=== PATIENT | female | born 1955 | race Caucasian/White ===

== ENCOUNTER 2023-04-29 02:16 | Inpatient (IN) | payer MEDICARE, MEDICAID, SELFPAY ==
[2023-04-29] VITALS (22 sets, daily range): BP systolic 105–179; BP diastolic 56–124; PULSE 52–101; RESP 16–26; TEMP 35.9–36.9; O2SAT 72–97; BMI 17.9
--- NOTE | 2023-04-29 02:28 | DI.CT.S_ITS ---
PROCEDURE: CT HEAD/BRAIN WO CON INDICATIONS: HEADACHE X 10 DAYS TECHNIQUE: Noncontrast 4.5 mm thick angled axial sections acquired from the foramen magnum to the vertex, with coronal and sagittal reformats. For radiation dose reduction, the following was used: automated exposure control, adjustment of mA and/or kV according to patient size. COMPARISON: [facility], CT, HEAD WITHOUT CONTRAST, 10/31/2014, 5:55. FINDINGS: Image quality: Diagnostic. CSF spaces: Basal cisterns are patent. No extra-axial fluid collections. The ventricles are symmetric in size and shape. Brain: No intracranial bleeds or masses. There is cerebral volume loss for age, with resultant ventricular and sulcal prominence. There are periventricular and deep white matter chronic small vessel ischemic changes. There is intracranial internal carotid artery atherosclerosis. Skull and face: Calvarium and visualized facial bones appear intact, without suspicious lesions. Sinuses: Visualized sinuses and mastoids are clear. IMPRESSION: No evidence acute intracranial process. Comment: Final report is concordant with preliminary interpretation provided by [facility]. Dictated by: Luis M Contreras M.D. on 04/29/2023 at 7:50 Approved by: Luis M Contreras M.D. on 04/29/2023 at 7:51
--- NOTE | 2023-04-29 02:28 | DI.RAD.S_ITS ---
PROCEDURE: XR CHEST 1V INDICATIONS: COUGH, DYSPNEA TECHNIQUE: One view of the chest was acquired. COMPARISON: None FINDINGS: Surgical changes and devices: None. Lungs and pleura: Emphysematous change. Extensive patchy bilateral densities, right greater than left, involving the right mid and lower lung field and left lower lung field. Question cavitation. Consider pneumonia versus malignancy. Mediastinum: Mediastinal contours appear normal. Heart size is normal. Bones and chest wall: No suspicious bony lesions. Overlying soft tissues appear unremarkable. IMPRESSION: 1. COPD. 2. Extensive patchy bilateral densities, with a question of cavitation, right greater than left. Consider bilateral pneumonia. Cannot exclude malignancy. Comment: Final report is concordant with preliminary interpretation provided by [facility]. Dictated by: Luis M Contreras M.D. on 04/29/2023 at 7:47 Approved by: Luis M Contreras M.D. on 04/29/2023 at 7:50
--- NOTE | 2023-04-29 02:30 | ED_ITS ---
HPI - General Adult General Chief complaint: Shortness of Breath/Dyspnea Stated complaint: possible flu Time Seen by Provider: 04/29/23 02:21 History of Present Illness HPI narrative: 67-year-old female with history of hypertension, COPD, ongoing tobacco abuse presents by private vehicle from home for 10 days of headache, generalized weakness, productive cough. Family members at home tested positive for influenza, patient has been trying to stay home, but she can not sleep due to her symptoms and has not improved, so tonight they decided to bring her in for evaluation. Related Data Allergies Allergy/AdvReac Type Severity Reaction Status Date / Time codeine [CODEINE] Allergy Unknown Unverified 07/06/17 11:57 Review of Systems Review of Systems Narrative: Negative except as noted above Exam Narrative Exam Narrative: Const: Awake, alert, underweight, appears chronically unwell, much older than stated age Cardiac: regular rate, regular rhythm RESP: Barrel chest, [id number] increased work of breathing, inspiratory and expiratory wheezes GI: Atraumatic, soft, nontender Skin: Warm, Dry, poor skin turgor Neuro: AO x3, CN II-XII grossly intact, moves all extremities Initial Vital Signs Initial Vital Signs: Vital Signs Temperature 98.5 F 04/29/23 02:23 Pulse Rate 98 H 04/29/23 02:23 Respiratory Rate 26 H 04/29/23 02:23 Blood Pressure 179/91 H 04/29/23 02:23 Pulse Oximetry 80 L 04/29/23 02:23 Oxygen Delivery Method Room Air 04/29/23 02:23 Course Orders Ordered: ED Orders 04/29/23 02:28 CT head/brain wo con Stat Chest [XR chest 1V] Stat CBC Auto Diff [Complete Blood Count AUTO DIFF] Stat UA Complete [Urinalysis and Microscopic] Stat 04/29/23 02:29 EKG-12 Lead Stat 04/29/23 02:43 Respiratory Panel (Film Array) Stat 04/29/23 03:10 CMP [Comprehensive Metabolic Panel] Stat Lactate (Lactic Acid) Stat PT [Prothrombin Time INR] Stat Troponin & CK Cardiac Panel Stat 04/29/23 03:11 ABG [Arterial Blood Gas] Stat 04/29/23 03:31 Blood Culture Stat 04/29/23 03:56 CT chest w con Stat Discontinued Medications Albuterol/Ipratropium (Albuterol/Ipratropium 3 Ml Ampul) 6 ml INH NOW ONE Stop: 04/29/23 02:30 Last Admin: 04/29/23 03:15 Dose: 6 ml Diphenhydramine HCl (Diphenhydramine 50 Mg/Ml Vial) 25 mg IV NOW ONE Stop: 04/29/23 02:29 Last Admin: 04/29/23 03:22 Dose: 25 mg Sodium Chloride (Normal Saline 0.9%) 1,000 mls @ 1,000 mls/hr IV BOLUS ONE Stop: 04/29/23 03:27 Last Infusion: 04/29/23 04:10 Dose: Infused Ceftriaxone Sodium 1,000 mg/ (Sodium Chloride) 100 mls @ 200 mls/hr IV NOW ONE Stop: 04/29/23 03:32 Last Infusion: 04/29/23 04:22 Dose: Infused Metoclopramide HCl (Metoclopramide 10 Mg/2 Ml Inj) 10 mg IV NOW ONE Stop: 04/29/23 02:29 Last Admin: 04/29/23 03:25 Dose: 10 mg Vital Signs Vital signs: Vital Signs - 8 hr 04/29/23 02:23 04/29/23 02:25 04/29/23 02:26 Temperature 98.5 F Pulse Rate 98 H 99 H Respiratory Rate 26 H Blood Pressure 179/91 H Pulse Oximetry 80 L 72 L 73 L Oxygen Delivery Method Room Air Oxygen Flow Rate 04/29/23 02:26 04/29/23 02:27 04/29/23 02:27 Temperature Pulse Rate 101 H Respiratory Rate Blood Pressure 177/124 H 179/91 H Pulse Oximetry 74 L Oxygen Delivery Method Oxygen Flow Rate 04/29/23 02:30 04/29/23 02:30 04/29/23 03:01 Temperature Pulse Rate 52 L 83 Respiratory Rate 26 H Blood Pressure 155/97 H 155/97 H Pulse Oximetry 84 L 81 L Oxygen Delivery Method Room Air Oxygen Flow Rate 04/29/23 03:30 04/29/23 03:52 04/29/23 03:52 Temperature Pulse Rate 90 96 H Respiratory Rate Blood Pressure 137/98 H Pulse Oximetry 80 L 89 L Oxygen Delivery Method Room Air Nasal Cannula Oxygen Flow Rate 2 04/29/23 04:00 04/29/23 04:00 Temperature Pulse Rate 86 Respiratory Rate Blood Pressure 121/66 Pulse Oximetry 94 Oxygen Delivery Method Nasal Cannula Oxygen Flow Rate 3 Medical Decision Making Differential Diagnosis Differential Diagnosis: Pneumonia, COPD, influenza Lab Data 04/29/23 03:10 04/29/23 03:10 Labs: Lab Results 04/29/23 04/29/23 04/29/23 Range/Units 02:43 03:10 03:11 WBC 22.4 H (4.5-11.0) X10^3/uL RBC 4.62 (4.0-5.2) X10^6/uL Hgb 13.5 (12.0-16.0) g/dL Hct 40.7 (36-46) % MCV 88.0 (80-100) fL MCH 29.2 (26-34) PG MCHC 33.2 (30-36) % RDW 13.1 (11.6-14.8) % Plt Count 398 (150-400) X10^3/uL Neut % (Auto) 84.3 H (50-75) % Lymph % (Auto) 5.7 L (25-40) % [place] % (Auto) 9.6 (3-14) % Eos % (Auto) 0.2 L (2-4) % Baso % (Auto) 0.2 (0-2) % Neut # (Auto) 30765 H (4227-6935) /uL Lymph # (Auto) 1300 (8551-7789) /uL [place] # (Auto) 2100 H (0-900) /uL Eos # (Auto) 0 (0-450) /uL Baso # (Auto) 100 (0-100) /uL PT 15.0 H (9.4-12.5) SECONDS INR 1.3 (0.9-1.3) ABG Sample Site Left brachial ABG pH 7.37 (7.35-7.45) ABG pCO2 65.0 H* (35-45) mmHg ABG pO2 35 L* (80-100) mmHg ABG HCO3 37 H (23-27) mmol/L ABG Total CO2 39 H (23-27) mmol/L ABG O2 Saturation 63 L* (95-100) % ABG Base Excess 12.0 H (-2-3) mmol/L FiO2 21 Sodium 123 L (137-145) mmol/L Potassium 4.2 (3.4-5.1) mmol/L Chloride 81 L (98-107) mmol/L Carbon Dioxide 39 H (22-32) mmol/L BUN 9 (7-17) mg/dL Creatinine 0.30 L (0.52-1.04) mg/dL Estimated GFR > 60 (>60) mL/min BUN/Creatinine Ratio 30.0 H (6-22) Glucose 116 H (80-110) mg/dL Lactate 1.0 (0.7-2.1) mmol/L Calcium 8.6 (8.4-10.2) mg/dL Total Bilirubin 0.7 (0.2-1.3) mg/dL AST 35 (14-36) IU/L ALT 32 (<35) IU/L Alkaline Phosphatase 93 (38-126) U/L Total Creatine Kinase 24 L (30-135) U/L Troponin I < 0.012 (0.01-0.034) ng/mL Total Protein 6.3 (6.3-8.2) g/dL Albumin 3.0 L (3.5-5.0) g/dL Globulin 3.3 (1.7-4.1) g/dL Albumin/Globulin Ratio 0.9 L (1.0-2.8) Chlamy pneumoniae PCR Not detected (Not Detect) Adenovirus (PCR) Not detected (Not Detect) B.parapertussis DNA PCR Not detected (Not Detecte) Coronavirus OC43 (PCR) Not detected (Not Detect) Coronavirus HKU1 (PCR) Not detected (Not Detect) Coronavirus 229E (PCR) Not detected (Not Detect) SARS-CoV-2 (PCR) Not detected (Not Detecte) Coronavirus NL63 (PCR) Not detected (Not Detect) Human Metapneumovir PCR Not detected (Not Detect) Influenza Type A (PCR) Not detected (Not Detect) Influenza Type B (PCR) Not detected (Not Detect) M. pneumoniae (PCR) Not detected (Not Detect) Parainfluenza 1 (PCR) Not detected (Not Detect) Parainfluenza 2 (PCR) Not detected (Not Detect) Parainfluenza 3 (PCR) Not detected (Not Detect) Parainfluenza 4 (PCR) Not detected (Not Detect) RSV (PCR) Not detected (Not Detect) Entero/Rhino (PCR) Not detected (Not Detect) MDM Narrative Medical decision making narrative: Very chronically unwell appearing patient presenting for shortness of breath, malaise, headache. Patient denies known medical history, stating she hasn't been to see a doctor in many years, however she is obvious barrel chested and pursed lip breathing consistent with obstructive pulmonary disease. Labs, respiratory panel, chest x-ray, CT brain ordered. Plan to also order nebulizers and steroids, headache cocktail, IV fluids. Patient's work of breathing improved after nebulizers, still requiring supplemental oxygen to maintain saturations above 90%. ABG on room air shows pH 7.37, pCO2 65, PO2 35, bicarb 37, oxygen saturation 63%. Laboratory work is significant for leukocytosis of 22.4, sodium 123, potassium 4.2, chloride 81, CO2 39, creatinine 0.3. Respiratory panel negative. Preliminary review of chest x-ray is concerning for multifocal pneumonia, can not rule out malignancy and Radiology recommended additional imaging, and so a CT of the chest with contrast was ordered. Plan to also add blood cultures, lactic acid, IV antibiotics given the leukocytosis and chest x-ray findings. CT of the chest appears most consistent with multifocal pneumonia. Lactic acid 1.0, blood cultures pending. Patient has received IV antibiotics. She was resting comfortably, still on nasal cannula, sitting upright in bed with pursed lip breathing. Plan to admit patient to hospital for further treatment. Critical Care Time Critical Care Time Critical Care Time: Yes Total Critical Care Time: 33 Attestation: acute hypoxemic respiratory failure, COPD, multifocal pneumonia requiring supplemental oxygen, antibiotics Discharge Plan Departure Patient Disposition: Admitted As Inpatient Clinical Impression: Acute hypoxemic respiratory failure, Multifocal pneumonia, Hyponatremia Headache Qualifiers: Headache type: unspecified Headache chronicity pattern: acute headache I ntractability: not intractable Qualified Code(s): R51.9 - Headache, unspecified
[2023-04-29] MEDS: SODIUM CHLORIDE 0.9% 1,000 ML 1000 ML IV (03:10)
[2023-04-29] MEDS: ALBUTEROL/IPRATROPIUM 3 ML AMPUL 6 ML INH (03:15)
[2023-04-29] MEDS: diphenhydrAMINE 50 MG/ML VIAL 25 MG IV (03:22)
[2023-04-29 03:25] LABS: Add Manual Diff / Slide Review NO; Basophils Absolute Auto 100 /uL (0-100); Basophils Percent Auto 0.2 % (0-2); Eosinophils Absolute Auto 0 /uL (0-450); Eosinophils Percent Auto 0.2 % (2-4); Hematocrit 40.7 % (36-46); Hemoglobin 13.5 g/dL (12.0-16.0); Lymphocytes Absolute Auto 1300 /uL (1100-4500); Lymphocytes Percent Auto 5.7 % (25-40); Mean Corpuscular HGB Conc 33.2 % (30-36); Mean Corpuscular Hemoglobin 29.2 PG (26-34); Monocytes Absolute Auto 2100 /uL (0-900); Monocytes Percent Auto 9.6 % (3-14); Neutrophils Absolute Auto 18800 /uL (1500-7000); Neutrophils Percent Auto 84.3 % (50-75); Platelet Count 398 X10^3/uL (150-400); Red Blood Cell Count 4.62 X10^6/uL (4.0-5.2); Red Cell Distribution Width 13.1 % (11.6-14.8); White Blood Cell Count 22.4 X10^3/uL (4.5-11.0)
[2023-04-29] MEDS: METOCLOPRAMIDE 10 MG/2 ML INJ IV (03:25)
[2023-04-29 03:33] LABS: INR 1.3 (0.9-1.3)
[2023-04-29 03:40] LABS: HEMOLYSIS < 15 (0-50)
[2023-04-29 03:43] LABS: Adenovirus Not Detected (Not Detect); B. parapertussis Not Detected (Not Detecte); Bordetella pertussis Not Detected (Not Detect); Chlamydophila pneumoniae Not Detected (Not Detect); Coronavirus 229E Not Detected (Not Detect); Coronavirus HKU1 Not Detected (Not Detect); Coronavirus NL 63 Not Detected (Not Detect); Coronavirus OC43 Not Detected (Not Detect); Human Metapneumovirus Not Detected (Not Detect); Human Rhinovirus/Enterovirus Not Detected (Not Detect); Influenza A Not Detected (Not Detect); Influenza B Not Detected (Not Detect); Mycoplasma pneumoniae Not Detected (Not Detect); Parainfluenza Virus 1 Not Detected (Not Detect); Parainfluenza Virus 2 Not Detected (Not Detect); Parainfluenza Virus 3 Not Detected (Not Detect); Parainfluenza Virus 4 Not Detected (Not Detect); Respiratory Syncytial Virus Not Detected (Not Detect); SARS- CoV-2 Not Detected (Not Detecte)
[2023-04-29 03:47] LABS: Alanine Aminotransferase 32 IU/L (<35); Albumin Globulin Ratio 0.9 (1.0-2.8); Alkaline Phosphatase 93 U/L (38-126); Aspartate Aminotransferase 35 IU/L (14-36); Bilirubin Total 0.7 mg/dL (0.2-1.3); Blood Urea Nitrogen 9 mg/dL (7-17); Calcium 8.6 mg/dL (8.4-10.2); Carbon Dioxide 39 mmol/L (22-32); Chloride 81 mmol/L (98-107); Creatine Kinase 24 U/L (30-135); Estimated Glomerular Filt Rate > 60 mL/min (>60); Globulin 3.3 g/dL (1.7-4.1); Glucose 116 mg/dL (80-110); Potassium 4.2 mmol/L (3.4-5.1); Sodium 123 mmol/L (137-145); Total Protein 6.3 g/dL (6.3-8.2)
[2023-04-29] MEDS: cefTRIAXone 1,000 MG in SODIUM CHLORIDE 0.9% 100 ML 200 MG IV ×2 (03:52→09:06)
--- NOTE | 2023-04-29 03:56 | DI.CT.S_ITS ---
PROCEDURE: CT CHEST W CON INDICATIONS: ABNORMAL CXR, BILAT OPACITIES, FURTHER EVAL TECHNIQUE: After the administration of intravenous contrast, 5 mm thick sections acquired from the pulmonary apices to the posterior costophrenic angles. 1 mm axial lung, 5 mm thick coronal and sagittal reformats and 7 mm axial MIP were acquired. For radiation dose reduction, the following was used: automated exposure control, adjustment of mA and/or kV according to patient size. COMPARISON: [facility], CR, XR CHEST 1V, 04/29/2023, 2:33. FINDINGS: Image quality: Diagnostic. Lower Neck: No enlarged lymph nodes. Thyroid: No thyroid nodules which require sonographic follow up, per consensus guidelines. Axillae: No enlarged lymph nodes. Chest Wall: Unremarkable. Bones: Unremarkable. Lungs and Pleura: No pneumothorax or pleural effusions. Bilateral patchy nodular densities more confluent in lower lobes, right middle lobe and lingula. Moderate emphysema. No pleural effusions. Heart: Heart size is normal. No pericardial effusion. Thoracic Vessels: The aorta and pulmonary arteries demonstrate normal size. Mediastinum and [place]: Mild mediastinal lymphadenopathy. For example, there is a 1.3 cm precarinal lymph node. A 1 cm paratracheal lymph node is identified. Esophagus: No wall thickening. Small hiatal hernia. Upper Abdomen: Visualized upper abdomen solid organs and bowel loops appear normal. IMPRESSION: 1. Bilateral patchy nodular densities, more confluent in lower lobes, right middle lobe and lingula. The findings are most likely secondary to an infectious process, including atypical pneumonia or granulomatous infection. Neoplasm is not excluded. Recommend follow-up to resolution. 2. Mild mediastinal lymphadenopathy, likely reactive. No significant discrepancy with the operations supervisor 2nd shift radiology preliminary report. Dictated by: Liliana Lobo M.D. on 04/29/2023 at 7:57 Approved by: Liliana Lobo M.D. on 04/29/2023 at 8:02
[2023-04-29 04:00] LABS: Troponin I < 0.012 ng/mL (0.01-0.034)
[2023-04-29 04:08] LABS: pH ABG 7.37 (7.35-7.45)
[2023-04-29 04:09] LABS: Allen Test for ABG Passed? Yes, Passed; Blood Gas Collection Site Left Brachial; Fractionated Inspired Oxygen 21; HCO3 ABG 37 mmol/L (23-27); TCO2 ABG 39 mmol/L (23-27)
--- NOTE | 2023-04-29 05:00 | PC.NURSE ---
Assisted to transfer to bathroom via wheelchair to void. Urine catch placed in toilet, pt. instructed to make effort to not void behind catch then did same w/ no urine specimen collected.
--- NOTE | 2023-04-29 05:28 | PC.NURSE ---
[facility] evaluation completed by Hospitalist
[2023-04-29] MEDS: methylPREDNISolone 125 MG/2 ML VIAL IV (06:06)
--- NOTE | 2023-04-29 06:11 | DI.ECHO.S_ITS ---
[facility]+ [facility] +---------+ : : [address] : : [place] : : : : [id number] : : : : Phone: [phone] Echocardiogram Report + + :Name: KARSON DONAHUE Study Date: 04/29/2023 Height: 63 in : :[facility] ReadingLocation: Weight: 101 lb : : Gender: Female BSA: 1.4 m2 : :: 1955 Age: 67 yrs BP: 105/56 mmHg: :Reason For Study: RESPIRATORY FAILURE : :Ordering Physician: KASEY, : :GIOVANI Massey MD Performed By: Zari Mora : :Referring: RESPIRATORY FAILLURE : + + Interpretation Summary The ejection fraction is estimated to be 65-70%. Grade I diastolic dysfunction. The right ventricle is normal in size and function. The right ventricular systolic pressure is estimated to be at least 34 mmHg based on an estimated right atrial pressure of 3 mm Hg. No significant valvular abnormality. Procedure: A two-dimensional transthoracic echocardiogram with color flow and Doppler was performed. The study quality was technically adequate. There is no prior echocardiogram noted for this patient. The patient was in sinus rhythm with heart rates between 69-78 bpm during the exam. Left Ventricle: The left ventricular cavity is small. Left ventricular wall thickness is at the upper limits of normal. An intracavitary gradient is suspected. The left ventricle is hyperdynamic. The ejection fraction is estimated to be 65-70%. Left ventricular wall motion is normal. Grade I diastolic dysfunction. Right Ventricle: The right ventricle is normal in size and function. Atria: The left atrium is mildly dilated. The right atrium is normal in size. There is no Doppler evidence for an interatrial shunt. Mitral Valve: There is mild mitral annular calcification. The mitral valve leaflets appear mildly thickened, but open well. There is no mitral regurgitation noted. Aortic Valve: The aortic valve is trileaflet. The aortic valve is mildly calcified. There is no aortic valve stenosis. No aortic regurgitation is present. Tricuspid Valve: The tricuspid valve is normal in structure and function. There is mild tricuspid regurgitation. The right ventricular systolic pressure is estimated to be at least 34 mmHg based on an estimated right atrial pressure of 3 mm Hg. Pulmonic Valve: The pulmonic valve leaflets are thin and pliable; valve motion is normal. There is no pulmonic valvular regurgitation. Great Vessels: The aortic root is normal size. The dimensions of the ascending aorta are normal. The IVC is of normal diameter and collapses greater than 50% with a sniff. This suggests a low right atrial pressure of 3 mm Hg. Pericardium/ Pleura There is a trivial pericardial effusion noted. There is no pleural effusion. MMode/2D Measurements & Calculations LVIDd: 3.8 cm LVOT diam: 2.1 cm LVIDs: 1.8 cm Ao root diam: 3.1 cm FS: 53.0 % asc Aorta Diam: 3.3 cm IVSd: 1.1 cm LVPWd: 0.91 cm LV messina. diameter/BSA (cm/m^2): 2.6 LV sys. diameter/BSA (cm/m^2): 1.2 LA A2 area: 19.2 cm2 RA long axis: 4.7 cm LA A4 area: 18.4 cm2 RA area: 16.2 cm2 LA length (vol): 5.8 cm RA vol: 47.0 ml LA vol: 52.1 ml RA : 32.5 ml/m2 LA vol index: 36.0 ml/m2 IVC diam: 1.7 cm RVD1 (basal): 3.1 cm RVD2 (mid): 2.4 cm TAPSE: 2.2 cm Doppler Measurements & Calculations Ao V2 max: 139.6 cm/sec LVOT Max Elvis: 112.9 cm/sec Ao V2 mean: 102.4 cm/sec LV V1 max P.1 mmHg Ao max P.8 mmHg LV V1 VTI: 25.2 cm Ao mean P.6 mmHg AMARILIS(I,D): 2.8 cm2 Ao V2 VTI: 29.6 cm AMARILIS(V,D): 2.7 cm2 sev ratio: 0.85 AMARILIS indexed to BSA (cm^2/m^2): 2.0 MV E max elvis: 52.1 cm/sec TR max elvis: 277.0 cm/sec MV A max elvis: 83.7 cm/sec TR max P.7 mmHg MV E/A: 0.62 PA V2 max: 90.3 cm/sec Med Peak E' Elvis: 10.0 cm/sec PA V2 mean: 68.5 cm/sec E/E' med: 5.2 PA mean P.0 mmHg Lat Peak E' Elvis: 9.6 cm/sec PA pr(Accel): 34.5 mmHg E/E' lat: 5.4 E/e' average: 5.3 MV dec time: 0.27 sec SV(LVOT): 83.8 ml Reading Physician:PM
--- NOTE | 2023-04-29 06:13 | PM.HP.1 ---
History of Present Illness History of Present Illness Date Patient Seen: 04/29/23 Time Patient Seen: 06:30 Chief complaint: possible flu Narrative: 67 years old female chronic smoker with likely COPD presented to the emergency room for worsening shortness of breath with generalized weakness and cough that is productive with greenish-yellow sputum. Symptoms have been ongoing for the past week?10 days. She lives with her son/family and apparently some members tested positive for influenza and patient was trying conservative management but symptoms worsened to the point where she presents to the emergency room. Did have chills but did not check temperature. More of a chest tightness with exertion. Denies any nausea or vomiting. Did have a headache that is intermittent but no focal neurological deficits. In the ED was noted to be tachypneic with respiration in the mid 20s and hypoxic with an O2 saturation in the high 70s on room air on arrival that has since improved to 92% on 3 L. Subsequent workup revealed a white count of 22,400 and an ABG showed a pH of 7.37 with a pCO2 of 65 at FiO2 of 2 L. BMP showed a sodium of 123. Lactic acid was 1.0. The virus panel is negative for COVID influenza/RSV and other agents being checked. Chest x-ray and a follow-up CT chest is consistent with multifocal pneumonia. Patient received IV Rocephin/Zithromax/Solu-Medrol with nebulizers/oxygen supplementation. Patient has been admitted for further evaluation [facility] Social History Smoking Status: Current every day smoker Meds Home Medications and Allergies Home Medications Medication Instructions Recorded Confirmed Type No Known Home Medications 04/29/23 04/29/23 History Allergies Allergy/AdvReac Type Severity Reaction Status Date / Time codeine [CODEINE] AdvReac Mild Nausea Verified 04/29/23 05:56 Review of Systems Review of Systems Narrative: A 12 point review of system is negative unless otherwise stated in the history of present illness Exam Vital Signs (past 8 hours): - 04/29/23 02:23 04/29/23 02:25 04/29/23 02:26 Temperature 98.5 F Pulse Rate 98 H 99 H Respiratory Rate 26 H Blood Pressure 179/91 H Pulse Oximetry 80 L 72 L 73 L Oxygen Delivery Method Room Air Oxygen Flow Rate 04/29/23 02:26 04/29/23 02:27 04/29/23 02:27 Temperature Pulse Rate 101 H Respiratory Rate Blood Pressure 177/124 H 179/91 H Pulse Oximetry 74 L Oxygen Delivery Method Oxygen Flow Rate 04/29/23 02:30 04/29/23 02:30 04/29/23 03:01 Temperature Pulse Rate 52 L 83 Respiratory Rate 26 H Blood Pressure 155/97 H 155/97 H Pulse Oximetry 84 L 81 L Oxygen Delivery Method Room Air Oxygen Flow Rate 04/29/23 03:30 04/29/23 03:52 04/29/23 03:52 Temperature Pulse Rate 90 96 H Respiratory Rate Blood Pressure 137/98 H Pulse Oximetry 80 L 89 L Oxygen Delivery Method Room Air Nasal Cannula Oxygen Flow Rate 2 04/29/23 04:00 04/29/23 04:00 04/29/23 04:30 Temperature Pulse Rate 86 96 H Respiratory Rate Blood Pressure 121/66 Pulse Oximetry 94 94 Oxygen Delivery Method Nasal Cannula Nasal Cannula Oxygen Flow Rate 3 3 04/29/23 05:00 04/29/23 05:00 04/29/23 05:08 Temperature Pulse Rate 91 H Respiratory Rate 20 Blood Pressure 140/68 Pulse Oximetry 93 92 Oxygen Delivery Method Nasal Cannula Nasal Cannula Oxygen Flow Rate 3 3 04/29/23 05:30 04/29/23 05:32 04/29/23 05:32 Temperature Pulse Rate 91 H 89 Respiratory Rate Blood Pressure 132/61 Pulse Oximetry 94 94 Oxygen Delivery Method Nasal Cannula Nasal Cannula Oxygen Flow Rate 3 3 04/29/23 06:00 04/29/23 06:00 Temperature Pulse Rate 83 Respiratory Rate Blood Pressure 111/62 Pulse Oximetry 97 Oxygen Delivery Method Nasal Cannula Oxygen Flow Rate 3 Oxygen Delivery Method Nasal Cannula Oxygen Flow Rate 3 Narrative Exam Narrative: Patient is appearing malnourished. Able to speak more than 4-5 words at a time. Does appear to be short of breath. Denies any chest pain Objective Labs 04/29/23 03:10 04/29/23 03:10 Labs: Laboratory Results - last 24 hr 04/29/23 04/29/23 04/29/23 02:43 03:10 03:11 WBC 22.4 H RBC 4.62 Hgb 13.5 Hct 40.7 MCV 88.0 MCH 29.2 MCHC 33.2 RDW 13.1 Plt Count 398 Neut % (Auto) 84.3 H Lymph % (Auto) 5.7 L [place] % (Auto) 9.6 Eos % (Auto) 0.2 L Baso % (Auto) 0.2 Neut # (Auto) 31303 H Lymph # (Auto) 1300 [place] # (Auto) 2100 H Eos # (Auto) 0 Baso # (Auto) 100 PT 15.0 H INR 1.3 ABG Sample Site Left brachial ABG pH 7.37 ABG pCO2 65.0 H* ABG pO2 35 L* ABG HCO3 37 H ABG Total CO2 39 H ABG O2 Saturation 63 L* ABG Base Excess 12.0 H FiO2 21 Sodium 123 L Potassium 4.2 Chloride 81 L Carbon Dioxide 39 H BUN 9 Creatinine 0.30 L Estimated GFR > 60 BUN/Creatinine Ratio 30.0 H Glucose 116 H Lactate 1.0 Calcium 8.6 Total Bilirubin 0.7 AST 35 ALT 32 Alkaline Phosphatase 93 Total Creatine Kinase 24 L Troponin I < 0.012 Total Protein 6.3 Albumin 3.0 L Globulin 3.3 Albumin/Globulin Ratio 0.9 L Chlamy pneumoniae PCR Not detected Adenovirus (PCR) Not detected B.parapertussis DNA PCR Not detected Coronavirus OC43 (PCR) Not detected Coronavirus HKU1 (PCR) Not detected Coronavirus 229E (PCR) Not detected SARS-CoV-2 (PCR) Not detected Coronavirus NL63 (PCR) Not detected Human Metapneumovir PCR Not detected Influenza Type A (PCR) Not detected Influenza Type B (PCR) Not detected M. pneumoniae (PCR) Not detected Parainfluenza 1 (PCR) Not detected Parainfluenza 2 (PCR) Not detected Parainfluenza 3 (PCR) Not detected Parainfluenza 4 (PCR) Not detected RSV (PCR) Not detected Entero/Rhino (PCR) Not detected Assessment & Plan Assessment & Plan narrative: 67 years old female chronic smoker with likely COPD presented to the emergency room for worsening shortness of breath with generalized weakness and cough that is productive with greenish-yellow sputum. Symptoms have been ongoing for the past week?10 days. She lives with her son/family and apparently some members tested positive for influenza and patient was trying conservative management but symptoms worsened to the point where she presents to the emergency room. Did have chills but did not check temperature. More of a chest tightness with exertion. Denies any nausea or vomiting. Did have a headache that is intermittent but no focal neurological deficits. In the ED was noted to be tachypneic with respiration in the mid 20s and hypoxic with an O2 saturation in the high 70s on room air on arrival that has since improved to 92% on 3 L. Subsequent workup revealed a white count of 22,400 and an ABG showed a pH of 7.37 with a pCO2 of 65 at FiO2 of 2 L. BMP showed a sodium of 123. Lactic acid was 1.0. The virus panel is negative for COVID influenza/RSV and other agents being checked. Chest x-ray and a follow-up CT chest is consistent with multifocal pneumonia. Patient received IV Rocephin/Zithromax/Solu-Medrol with nebulizers/oxygen supplementation. Patient has been admitted for further evaluation 1 acute hypoxemic respiratory failure multifactorial likely due to a combination of undiagnosed COPD/chronic smoking in the setting of multifocal pneumonia #2 pneumonia community-acquired multifocal #3 hypoxemia #4 acute COPD exacerbation #5 smoker Pending cultures, continue the IV Rocephin/Zithromax with nebulizers and oxygen supplementation. Continue IV Solu-Medrol for now and maintain O2 saturation above 90%. Maintain continuous pulse ox on telemetry. Advised patient to quit smoking. Watch the blood sugars while on IV steroids Will follow-up with an echocardiogram to check if there is a cardiac component as well 6 hyponatremia suspect more likely secondary to the underlying pneumonia possibly SIADH further complicated by smoking. Follow-up on the final report of the CT chest. Check a serum and urine osmolality. Suspect more of hypervolemia related. Trend the sodium levels closely and focus on gradual correction at 0.5 mmol/h. Recheck in 6 hours. Initiate fluid restriction and trend closely 7 DVT prophylaxis will be Lovenox 8 GI prophylaxis will be with Protonix 9. Malnutrition. Nutrition consult for further evaluation 10 social issues/discharge barriers. Has not seen a physician in the past 2 years and may need case management/manager social work input to set up primary physician Goals of care has been reviewed and patient has requested a DNR status at this time. Discussion was witnessed by emergency room Patient meets criteria for inpatient expect length of stay greater than 2 midnights given the acute respiratory failure with pneumonia/COPD exacerbation with the need for IV antibiotics/IV steroids Patient was evaluated with the help of video communication device. Provider was located in [facility] and total time spent including review of chart/evaluation of the patient was 25 minutes
[2023-04-29] MEDS: PANTOPRAZOLE DR 40 MG TABLET PO (06:59)
[2023-04-29 07:52] LABS: PO2 ABG 35 mmHg (80-100)
[2023-04-29 07:53] LABS: Oxygen Saturation ABG 63 % (95-100)
--- NOTE | 2023-04-29 08:22 | P.HP_ITS ---
History of Present Illness History of Present Illness Date Patient Seen: 04/29/23 Chief complaint: possible flu Narrative: From overnight provider: 67 years old female chronic smoker with likely COPD presented to the emergency room for worsening shortness of breath with generalized weakness and cough that is productive with greenish-yellow sputum. Symptoms have been ongoing for the past week?10 days. She lives with her son/family and apparently some members tested positive for influenza and patient was trying conservative management but symptoms worsened to the point where she presents to the emergency room. Did have chills but did not check temperature. More of a chest tightness with exertion. Denies any nausea or vomiting. Did have a headache that is intermittent but no focal neurological deficits. In the ED was noted to be tachypneic with respiration in the mid 20s and hypoxic with an O2 saturation in the high 70s on room air on arrival that has since improved to 92% on 3 L. Subsequent workup revealed a white count of 22,400 and an ABG showed a pH of 7.37 with a pCO2 of 65 at FiO2 of 2 L. BMP showed a sodium of 123. Lactic acid was 1.0. The virus panel is negative for COVID influenza/RSV and other agents being checked. Chest x-ray and a follow-up CT chest is consistent with multifocal pneumonia. Patient received IV Rocephin/Zithromax/Solu-Medrol with nebulizers/oxygen supplementation. Patient has been admitted for further evaluation [facility] Social History Smoking Status: Current every day smoker alcohol intake: current Meds Home Medications and Allergies Home Medications Medication Instructions Recorded Confirmed Type No Known Home Medications 04/29/23 04/29/23 History Allergies Allergy/AdvReac Type Severity Reaction Status Date / Time codeine [CODEINE] AdvReac Mild Nausea Verified 04/29/23 05:56 Review of Systems Review of Systems Narrative: A 12 point review of system is negative unless otherwise stated in the history of present illness Exam Vital Signs (past 8 hours): - 04/29/23 02:23 04/29/23 02:25 04/29/23 02:26 Temperature 98.5 F Pulse Rate 98 H 99 H Respiratory Rate 26 H Blood Pressure 179/91 H Pulse Oximetry 80 L 72 L 73 L Oxygen Delivery Method Room Air Oxygen Flow Rate 04/29/23 02:26 04/29/23 02:27 04/29/23 02:27 Temperature Pulse Rate 101 H Respiratory Rate Blood Pressure 177/124 H 179/91 H Pulse Oximetry 74 L Oxygen Delivery Method Oxygen Flow Rate 04/29/23 02:30 04/29/23 02:30 04/29/23 03:01 Temperature Pulse Rate 52 L 83 Respiratory Rate 26 H Blood Pressure 155/97 H 155/97 H Pulse Oximetry 84 L 81 L Oxygen Delivery Method Room Air Oxygen Flow Rate 04/29/23 03:30 04/29/23 03:52 04/29/23 03:52 Temperature Pulse Rate 90 96 H Respiratory Rate Blood Pressure 137/98 H Pulse Oximetry 80 L 89 L Oxygen Delivery Method Room Air Nasal Cannula Oxygen Flow Rate 2 04/29/23 04:00 04/29/23 04:00 04/29/23 04:30 Temperature Pulse Rate 86 96 H Respiratory Rate Blood Pressure 121/66 Pulse Oximetry 94 94 Oxygen Delivery Method Nasal Cannula Nasal Cannula Oxygen Flow Rate 3 3 04/29/23 05:00 04/29/23 05:00 04/29/23 05:08 Temperature Pulse Rate 91 H Respiratory Rate 20 Blood Pressure 140/68 Pulse Oximetry 93 92 Oxygen Delivery Method Nasal Cannula Nasal Cannula Oxygen Flow Rate 3 3 04/29/23 05:30 04/29/23 05:32 04/29/23 05:32 Temperature Pulse Rate 91 H 89 Respiratory Rate Blood Pressure 132/61 Pulse Oximetry 94 94 Oxygen Delivery Method Nasal Cannula Nasal Cannula Oxygen Flow Rate 3 3 04/29/23 05:55 04/29/23 06:00 04/29/23 06:00 Temperature 97.8 F Pulse Rate 86 83 Respiratory Rate 22 Blood Pressure 126/72 111/62 Pulse Oximetry 96 97 Oxygen Delivery Method Nasal Cannula Oxygen Flow Rate 6 3 04/29/23 06:30 04/29/23 06:30 04/29/23 06:33 Temperature Pulse Rate 82 Respiratory Rate Blood Pressure 105/56 L Pulse Oximetry 94 Oxygen Delivery Method Nasal Cannula Nasal Cannula Oxygen Flow Rate 3 3 Oxygen Delivery Method Nasal Cannula Oxygen Flow Rate 3 Narrative Exam Narrative: Patient is appearing malnourished. Able to speak more than 4-5 words at a time. Does appear to be short of breath. Denies any chest pain Objective Labs 04/29/23 09:15 04/29/23 09:15 Labs: Laboratory Results - last 24 hr 04/29/23 04/29/23 04/29/23 02:43 03:10 03:11 WBC 22.4 H RBC 4.62 Hgb 13.5 Hct 40.7 MCV 88.0 MCH 29.2 MCHC 33.2 RDW 13.1 Plt Count 398 Neut % (Auto) 84.3 H Lymph % (Auto) 5.7 L [place] % (Auto) 9.6 Eos % (Auto) 0.2 L Baso % (Auto) 0.2 Neut # (Auto) 88146 H Lymph # (Auto) 1300 [place] # (Auto) 2100 H Eos # (Auto) 0 Baso # (Auto) 100 PT 15.0 H INR 1.3 ABG Sample Site Left brachial ABG pH 7.37 ABG pCO2 65.0 H* ABG pO2 35 L* ABG HCO3 37 H ABG Total CO2 39 H ABG O2 Saturation 63 L* ABG Base Excess 12.0 H FiO2 21 Sodium 123 L Potassium 4.2 Chloride 81 L Carbon Dioxide 39 H BUN 9 Creatinine 0.30 L Estimated GFR > 60 BUN/Creatinine Ratio 30.0 H Glucose 116 H Lactate 1.0 Calcium 8.6 Total Bilirubin 0.7 AST 35 ALT 32 Alkaline Phosphatase 93 Total Creatine Kinase 24 L Troponin I < 0.012 Total Protein 6.3 Albumin 3.0 L Globulin 3.3 Albumin/Globulin Ratio 0.9 L Chlamy pneumoniae PCR Not detected Adenovirus (PCR) Not detected B.parapertussis DNA PCR Not detected Coronavirus OC43 (PCR) Not detected Coronavirus HKU1 (PCR) Not detected Coronavirus 229E (PCR) Not detected SARS-CoV-2 (PCR) Not detected Coronavirus NL63 (PCR) Not detected Human Metapneumovir PCR Not detected Influenza Type A (PCR) Not detected Influenza Type B (PCR) Not detected M. pneumoniae (PCR) Not detected Parainfluenza 1 (PCR) Not detected Parainfluenza 2 (PCR) Not detected Parainfluenza 3 (PCR) Not detected Parainfluenza 4 (PCR) Not detected RSV (PCR) Not detected Entero/Rhino (PCR) Not detected Assessment & Plan Assessment & Plan narrative: # acute hypoxemic and hypercapnic respiratory failure multifactorial likely due to a combination of undiagnosed COPD with exacerbation/chronic smoking in the setting of multifocal pneumonia -Pending cultures, continue the IV Rocephin/Zithromax with nebulizers and oxygen supplementation. -ABG with compensated resp acidosis -Continue IV Solu-Medrol for now and maintain O2 saturation above 88%. -Maintain continuous pulse ox on telemetry. -Advised patient to quit smoking. -Will follow-up with an echocardiogram to check if there is a cardiac component as well # hyponatremia -suspect more likely secondary to the underlying pneumonia possibly SIADH further complicated by smoking. Check a serum and urine osmolality. Suspect more of hypervolemia related. Trend sodium. # DVT prophylaxis -Lovenox # GI prophylaxis -Protonix # Malnutrition. -Nutrition consult for further evaluation -BMI 17 # social issues/discharge barriers. -Has not seen a physician in the past 2 years and may need case management/social psychologist input to set up primary physician Goals of care has been reviewed and patient has requested a DNR status at this time. Discussion was witnessed by emergency room Dispo: 2-3 days pending improvement in PNA and COPD exacerbation. Quality VTE Deep Vein Thrombosis/Pulmonary Embolism Present on Admission: No
[2023-04-29 09:00] LABS: Appearance Urine UA CLEAR; Bilirubin Urine UA NEGATIVE (NEGATIVE); Color Urine UA YELLOW; Glucose Urine UA NEGATIVE (Negative); Ketones Urine UA NEGATIVE (NEGATIVE); Leukocyte Esterase Urine UA NEGATIVE (NEGATIVE); Nitrite Urine UA NEGATIVE (Negative); Occult Blood Urine UA NEGATIVE (Negative); Protein Urine UA NEGATIVE (Negative); Specific Gravity Urine UA <=1.005 (1.000-1.035)
[2023-04-29 09:03] LABS: pH Urine UA 6.5 (4.5-8.0)
[2023-04-29] MEDS: AZITHROMYCIN 250 MG TABLET 500 MG PO (09:05)
[2023-04-29] MEDS: methylPREDNISolone 125 MG/2 ML VIAL 60 MG IV ×2 (09:06→18:23)
[2023-04-29 09:07] LABS: Amorphous Sediment Urine 1+; Bacteria Urine Few (2-10); Culture Indicated Urine Specimen Cultured; RBC Urine None Seen (0-5/HPF); Squamous Epithelial Cell Urine 5-10 /HPF (0-5/HPF); Urine Volume 10mL (spun); WBC Urine 5-10/HPF (0-5/HPF)
[2023-04-29 09:31] LABS: Add Manual Diff / Slide Review NO; Basophils Absolute Auto 100 /uL (0-100); Basophils Percent Auto 0.6 % (0-2); Eosinophils Absolute Auto 0 /uL (0-450); Hematocrit 39.9 % (36-46); Hemoglobin 13.5 g/dL (12.0-16.0); Lymphocytes Absolute Auto 500 /uL (1100-4500); Lymphocytes Percent Auto 2.2 % (25-40); Mean Corpuscular HGB Conc 33.9 % (30-36); Mean Corpuscular Hemoglobin 30.4 PG (26-34); Mean Corpuscular Volume 89.5 fL (80-100); Monocytes Absolute Auto 400 /uL (0-900); Monocytes Percent Auto 1.8 % (3-14); Neutrophils Absolute Auto 22700 /uL (1500-7000); Neutrophils Percent Auto 95.4 % (50-75); Platelet Count 389 X10^3/uL (150-400); Red Blood Cell Count 4.45 X10^6/uL (4.0-5.2); Red Cell Distribution Width 12.9 % (11.6-14.8); White Blood Cell Count 23.8 X10^3/uL (4.5-11.0)
[2023-04-29 09:35] LABS: BUN Creatinine Ratio 17.6 (6-22); Blood Urea Nitrogen 6 mg/dL (7-17); Calcium 8.7 mg/dL (8.4-10.2); Carbon Dioxide 38 mmol/L (22-32); Chloride 86 mmol/L (98-107); Estimated Glomerular Filt Rate > 60 mL/min (>60); Glucose 131 mg/dL (80-110); HEMOLYSIS < 15 (0-50); Potassium 3.9 mmol/L (3.4-5.1); Sodium 128 mmol/L (137-145)
[2023-04-29 12:27] LABS: BUN Creatinine Ratio 17.1 (6-22); Blood Urea Nitrogen 6 mg/dL (7-17); Calcium 8.8 mg/dL (8.4-10.2); Chloride 88 mmol/L (98-107); Estimated Glomerular Filt Rate > 60 mL/min (>60); Glucose 151 mg/dL (80-110); HEMOLYSIS 16 (0-50); Potassium 4.4 mmol/L (3.4-5.1); Sodium 129 mmol/L (137-145)
[2023-04-29 12:34] LABS: Carbon Dioxide 38 mmol/L (22-32)
--- NOTE | 2023-04-29 14:38 | CM.DANOTE ---
Initial DCP Assessment Note Reviewed EMR and team rounds for pt's medical status and updates. DYNAMITE RECLAIMER did not meet with pt in person due to her acute influenza status. Pt resides independently with her spouse at baseline. Will plan to speak with pt/spouse prior to d/c re: any recommendations for in-home resources and preferences. Payor: Medicare PCP: U/K Pt is a 67 year-old F with a hx of COPD, hypertension, and chronic tobacco use preseted to the ED last evening with 10+ days of worsening cough, weakness, shortness of breath,and tested positive with a home test kit for influenza. ED CT imaging showed multifactorial pneumonia. She was started on IV ABO's, steroids, O2, and nebulizers. She is currently on 3LO2. DCP will continue to follow and assist with evolving d/c needs and resources. Discharge Planning/Care Management CM Discharge Assessment Start: 04/29/23 14:34 Freq: Status: Active Protocol: Document 04/29/23 14:35 DPL (Rec: 04/29/23 14:38 DPL [id number]) Discharge Planning Assessment Assigned Television News Photographer BARAK Gutierrez Advance Directives? No History Provided By Medical Record Expected Length of Stay 3 Has Patient been admitted in last 30 No days? Prior Living Arrangements House Household Members spouse Type of transporation used prior to Drives own vehicle admit Independent with ADL's Yes Is patient alert and oriented? Yes Caregiver for Another No Comment Pending improvement with antibiotics, as well as PT/OT eval and recommendations. Barriers to Discharge No Discharge Plan Home Additional Comment Pending If patient plan is home with home health No : Has signed face to face form been completed? Medicare Choice List Provided No Whiteboard Updated in Patient Room with No name and ext. # of Television News Photographer Comment DYNAMITE RECLAIMER did not enter room due to pt's acute influenza. Review Status In Process Please Provide Date Initial DC 04/29/23 Assessment Was Performed
[2023-04-29] MEDS: BUDESONIDE 0.5 MG/2 ML NEB INH (19:45)
--- NOTE | 2023-04-29 22:27 | PC.NURSE ---
Patient is alert and oriented. Breath sounds tight and diminished at bases with rhonchi throughout. Moist cough productive of green sputum per patient but none visualized at time of assessment. Day RN reported patient desats when out of bed but patient denied any SOB either at rest or with exertion. Is on oxygen per [facility]NC at 6L/min with sat of 93%; continuous oximetry in place. HRR. Denied nausea. BT hypoactive but reported she is passing flatus. Denied dysuria and has been getting up to [facility] with 1 assist. Is able to move self in bed. Bilateral calf SCD's were applied at shift change. Denied pain. Fall risk score is moderate and bed alarm is activated.
[2023-04-30] VITALS (9 sets, daily range): BP systolic 111–143; BP diastolic 60–74; PULSE 74–92; RESP 16–22; TEMP 36–37; O2SAT 88–95
[2023-04-30] MEDS: methylPREDNISolone 125 MG/2 ML VIAL 60 MG IV ×3 (00:36→20:26)
[2023-04-30] MEDS: SODIUM CHLORIDE 0.9% FLUSH 10 ML IV ×3 (00:38→20:27)
[2023-04-30] MEDS: ALBUTEROL/IPRATROPIUM 3 ML AMPUL INH ×3 (01:35→20:09)
[2023-04-30] MEDS: PANTOPRAZOLE DR 40 MG TABLET PO (06:32)
[2023-04-30] MEDS: BUDESONIDE 0.5 MG/2 ML NEB INH ×2 (08:44→20:09)
[2023-04-30] MEDS: AZITHROMYCIN 250 MG TABLET 500 MG PO (08:54)
[2023-04-30 08:55] LABS: Add Manual Diff / Slide Review NO; Basophils Absolute Auto 100 /uL (0-100); Basophils Percent Auto 0.3 % (0-2); Eosinophils Absolute Auto 0 /uL (0-450); Hematocrit 38.3 % (36-46); Hemoglobin 12.5 g/dL (12.0-16.0); Lymphocytes Absolute Auto 1100 /uL (1100-4500); Lymphocytes Percent Auto 5.1 % (25-40); Mean Corpuscular HGB Conc 32.5 % (30-36); Mean Corpuscular Hemoglobin 29.5 PG (26-34); Mean Corpuscular Volume 90.5 fL (80-100); Monocytes Absolute Auto 600 /uL (0-900); Monocytes Percent Auto 2.8 % (3-14); Neutrophils Absolute Auto 19900 /uL (1500-7000); Neutrophils Percent Auto 91.8 % (50-75); Platelet Count 390 X10^3/uL (150-400); Red Blood Cell Count 4.24 X10^6/uL (4.0-5.2); Red Cell Distribution Width 13.4 % (11.6-14.8); White Blood Cell Count 21.7 X10^3/uL (4.5-11.0)
[2023-04-30] MEDS: cefTRIAXone 2,000 MG in SODIUM CHLORIDE 0.9% 100 ML 200 MG IV (08:55)
[2023-04-30 09:05] LABS: BUN Creatinine Ratio 44.1 (6-22); Blood Urea Nitrogen 15 mg/dL (7-17); Calcium 8.9 mg/dL (8.4-10.2); Chloride 88 mmol/L (98-107); Estimated Glomerular Filt Rate > 60 mL/min (>60); Glucose 137 mg/dL (80-110); HEMOLYSIS < 15 (0-50); Potassium 4.5 mmol/L (3.4-5.1); Sodium 129 mmol/L (137-145)
[2023-04-30 09:06] LABS: Magnesium 2.1 mg/dL (1.6-2.3)
[2023-04-30 09:15] LABS: Carbon Dioxide 39 mmol/L (22-32)
--- NOTE | 2023-04-30 13:08 | P.PN_ITS ---
Subjective Subjective Interval history: 67F admitted with hypoxic respiratory failure due to COPD exacerbation and bacterial pneumonia. She feels much improved today, still on 3L O2 saturating in the upper 80s to low 90s today. Exam Vital Signs (past 8 hours): - 04/30/23 08:00 04/30/23 08:44 04/30/23 08:53 Temperature 97.1 F L Pulse Rate 79 88 82 Respiratory Rate 20 22 20 Blood Pressure 111/69 Pulse Oximetry 88 L 91 94 Oxygen Delivery Method Nasal Cannula Nasal Cannula Oxygen Flow Rate 6 3.5 Oxygen Delivery Method Nasal Cannula Oxygen Flow Rate 3.5 Narrative Exam Narrative: General:? NAD, thin appearing female BMI 17.9 HEENT:? Normocephalic, atraumatic, extraocular muscles intact, oral pharynx is clear and mucous membranes are moist. Neck: supple and symmetric, trachea is midline, no cervical adenopathy. Negative for JVD Lungs:?no tachypnea or respiratory distress Cardio:?RRR. Extremities: No edema Neuro:? Alert and orientated x3,? sensation to touch intact in all extremities, no gross deficits noted of cranial nerves. Psych:? Patient has a well-kept appearance, appropriate affect, mental status attitude thought context and judgment are appropriate for age. Objective Labs 04/30/23 08:50 04/30/23 08:50 Labs: Laboratory Results - last 24 hr 04/30/23 08:50 WBC 21.7 H RBC 4.24 Hgb 12.5 Hct 38.3 MCV 90.5 MCH 29.5 MCHC 32.5 RDW 13.4 Plt Count 390 Neut % (Auto) 91.8 H Lymph % (Auto) 5.1 L [place] % (Auto) 2.8 L Eos % (Auto) 0.0 L Baso % (Auto) 0.3 Neut # (Auto) 09024 H Lymph # (Auto) 1100 [place] # (Auto) 600 Eos # (Auto) 0 Baso # (Auto) 100 Sodium 129 L Potassium 4.5 Chloride 88 L Carbon Dioxide 39 H BUN 15 Creatinine 0.34 L Estimated GFR > 60 BUN/Creatinine Ratio 44.1 H Glucose 137 H Calcium 8.9 Magnesium 2.1 PFSH Social History household members: spouse Smoking Status: Current every day smoker alcohol intake: current Assessment & Plan Assessment & Plan narrative: # acute hypoxemic and hypercapnic respiratory failure multifactorial likely due to a combination of undiagnosed COPD with exacerbation/chronic smoking in the setting of multifocal pneumonia -Pending cultures, continue the IV Rocephin/Zithromax with nebulizers and oxygen supplementation. -ABG with compensated resp acidosis -Reduce solumedrol from TID to BID today, and maintain O2 saturation above 88%. -Maintain continuous pulse ox on telemetry. -Advised patient to quit smoking, she does not wish for nicotine patch at this time, she is motivated to stop smoking. -Echo with grade I diastolic failure, low normal BP and no obvious volume overload. Will hold on furosemide at this time. # hyponatremia -suspect more likely secondary to the underlying pneumonia possibly SIADH further complicated by smoking. Sodium trending up since admission, from 123 to 129, continue to monitor. -urine osm pending # DVT prophylaxis -Lovenox, patient requests SCDs as well # GI prophylaxis -Protonix # Malnutrition. -Nutrition consult for further evaluation -BMI 17 # social issues/discharge barriers. -Has not seen a physician in the past 2 years and may need case management/home health care social worker input to set up primary physician Goals of care has been reviewed and patient has requested a DNR status at this time. Discussion was witnessed by MD emergency room Dispo: 2-3 days pending improvement in PNA and COPD exacerbation. Quality VTE Deep Vein Thrombosis/Pulmonary Embolism Present on Admission: No
--- NOTE | 2023-04-30 13:29 | CM.DPC ---
DCP Cont: Discussed patient during team rounds. Patient is still on oxygen. Plan will be for her to discharge home when she no longer needs oxygen. Patient had been on 6 liters of oxygen, is currently on 3.5 liters. P: DCP to continue to follow. May want to give her resources for primary care providers at discharge. Lore Cuellar RN/Searchlight Operator
[2023-05-01] VITALS (7 sets, daily range): BP systolic 122–160; BP diastolic 67–89; PULSE 80–94; RESP 16–20; TEMP 36.3–37; O2SAT 84–92
[2023-05-01 05:32] LABS: Add Manual Diff / Slide Review NO; Basophils Absolute Auto 100 /uL (0-100); Basophils Percent Auto 0.3 % (0-2); Eosinophils Absolute Auto 0 /uL (0-450); Hematocrit 37.8 % (36-46); Hemoglobin 12.3 g/dL (12.0-16.0); Lymphocytes Absolute Auto 1100 /uL (1100-4500); Lymphocytes Percent Auto 4.4 % (25-40); Mean Corpuscular HGB Conc 32.5 % (30-36); Mean Corpuscular Hemoglobin 29.4 PG (26-34); Mean Corpuscular Volume 90.5 fL (80-100); Monocytes Absolute Auto 600 /uL (0-900); Monocytes Percent Auto 2.4 % (3-14); Neutrophils Absolute Auto 23000 /uL (1500-7000); Neutrophils Percent Auto 92.9 % (50-75); Platelet Count 413 X10^3/uL (150-400); Red Blood Cell Count 4.17 X10^6/uL (4.0-5.2); Red Cell Distribution Width 13.1 % (11.6-14.8); White Blood Cell Count 24.7 X10^3/uL (4.5-11.0)
[2023-05-01 05:45] LABS: BUN Creatinine Ratio 45.9 (6-22); Blood Urea Nitrogen 17 mg/dL (7-17); Calcium 8.9 mg/dL (8.4-10.2); Chloride 89 mmol/L (98-107); Estimated Glomerular Filt Rate > 60 mL/min (>60); Glucose 128 mg/dL (80-110); HEMOLYSIS < 15 (0-50); Sodium 130 mmol/L (137-145)
[2023-05-01 05:51] LABS: Carbon Dioxide 39 mmol/L (22-32)
[2023-05-01] MEDS: PANTOPRAZOLE DR 40 MG TABLET PO (07:01)
[2023-05-01] MEDS: AZITHROMYCIN 250 MG TABLET 500 MG PO (08:21)
[2023-05-01] MEDS: cefTRIAXone 2,000 MG in SODIUM CHLORIDE 0.9% 100 ML 200 MG IV (08:21)
[2023-05-01] MEDS: SODIUM CHLORIDE 0.9% FLUSH 10 ML IV ×2 (08:22→20:58)
--- NOTE | 2023-05-01 12:39 | CM.DPNOTE ---
Addendum entered by BARAK Andersen 05/01/23 15:47: ENVIRONMENTAL PROTECTION SPECIALIST entered room and introduced self and role. Pt sitting up in bed. Pt confirms living at home with son, DIL, and multiple grandchildren. Reports no CM needs at dc and DIL will be ride home. Reports unlikely being interested in PCP because she is a hermit and doesn't trust anyone. ENVIRONMENTAL PROTECTION SPECIALIST provided list of PCPs in area that accept pt's insurance/are taking new pt's. Pt agreed to consider. Plan: Plan: home when no longer on O2/medically stable with son/DIL to support at home. DIL to transport. No CM needs identified. CM team will continue to follow as needed. SL Original Note: DCP Note ENVIRONMENTAL PROTECTION SPECIALIST reviewed EMR. Per hospitalist in morning rounds, pt still on O2 (6ltrs) and the plan is to dc home when off O2. No O2 at baseline. Per RN, pt refusing breathing treatment/other care. Per chart review, pt is not established with PCP. Per RN/PCT, pt more agitated today, may be withdrawing from nicotine but is refusing a patch. ENVIRONMENTAL PROTECTION SPECIALIST attempted to bring list of PCPs to pt room. Pt on phone and asked this ENVIRONMENTAL PROTECTION SPECIALIST to return later. Plan: home when no longer on O2/medically stable. CM team will continue to follow closely. BARAK Andersen
--- NOTE | 2023-05-01 13:11 | P.PN_ITS ---
Subjective Subjective Interval history: 67F admitted with hypoxic respiratory failure due to COPD exacerbation and bacterial pneumonia. She refused a number of treatments today including steroids and nebulizer therapies, and oxygen at one point. Discussed management with patient, she complains of being unable to get sputum up and continued congestion. We discussed the risks and benefits of therapies, she agreed to some guaifenecin and oxygen and continued antibiotics. No longer wishes to continue steroids nor nebulizer therapies. Exam Vital Signs (past 8 hours): - 05/01/23 07:48 05/01/23 08:00 Temperature 97.5 F L Respiratory Rate 20 Blood Pressure 136/81 Pulse Oximetry 88 L 84 L Oxygen Delivery Method Nasal Cannula Oxygen Flow Rate 3 3 Oxygen Delivery Method Nasal Cannula Oxygen Flow Rate 3 Narrative Exam Narrative: General:? NAD, thin appearing female BMI 17.9 HEENT:? Normocephalic, atraumatic, extraocular muscles intact, oral pharynx is clear and mucous membranes are moist. Neck: supple and symmetric, trachea is midline, no cervical adenopathy. Negative for JVD Lungs:?no tachypnea or respiratory distress Cardio:?RRR. Extremities: No edema Neuro:? Alert and orientated x3,? sensation to touch intact in all extremities, no gross deficits noted of cranial nerves. Psych:? Patient has a well-kept appearance, appropriate affect, mental status attitude thought context and judgment are appropriate for age. Objective Labs 05/01/23 05:05 05/01/23 05:05 Labs: Laboratory Results - last 24 hr 05/01/23 05:05 WBC 24.7 H RBC 4.17 Hgb 12.3 Hct 37.8 MCV 90.5 MCH 29.4 MCHC 32.5 RDW 13.1 Plt Count 413 H Neut % (Auto) 92.9 H Lymph % (Auto) 4.4 L [place] % (Auto) 2.4 L Eos % (Auto) 0.0 L Baso % (Auto) 0.3 Neut # (Auto) 85081 H Lymph # (Auto) 1100 [place] # (Auto) 600 Eos # (Auto) 0 Baso # (Auto) 100 Sodium 130 L Potassium 5.0 Chloride 89 L Carbon Dioxide 39 H BUN 17 Creatinine 0.37 L Estimated GFR > 60 BUN/Creatinine Ratio 45.9 H Glucose 128 H Calcium 8.9 Magnesium 2.0 PFSH Social History household members: spouse Smoking Status: Current every day smoker alcohol intake: current Assessment & Plan Assessment & Plan narrative: # acute hypoxemic and hypercapnic respiratory failure multifactorial likely due to a combination of undiagnosed COPD with exacerbation/chronic smoking in the setting of multifocal pneumonia -Pending cultures, continue the IV Rocephin/Zithromax with nebulizers and oxygen supplementation. Attempted repeat CXR today but patient refused. -ABG with compensated resp acidosis on admission. -Patient no longer wishes to continue steroids after risks and benefit discussion. She comprehends the risk of stopping these including worsening breathing and prolonged hospitalization. -Maintain continuous pulse ox on telemetry. -Advised patient to quit smoking, she does not wish for nicotine patch at this time, she is motivated to stop smoking. -Echo with grade I diastolic failure, no obvious volume overload. Will hold on furosemide at this time, but if she continues to worsen consider diuresis. # hyponatremia -suspect more likely secondary to the underlying pneumonia possibly SIADH further complicated by smoking. Sodium trending up since admission, from 123 to 130 today, continue to monitor. -urine osm pending # DVT prophylaxis -Lovenox, patient requests SCDs as well # GI prophylaxis -Protonix # Malnutrition. -Nutrition consult for further evaluation -BMI 17 # social issues/discharge barriers. -Has not seen a physician in the past 2 years and may need case management/older adult social work specialist input to set up primary physician Goals of care has been reviewed and patient has requested a DNR status at this time. Discussion was witnessed by MD emergency room Dispo: 2-3 days pending improvement in PNA and COPD exacerbation. Quality VTE Deep Vein Thrombosis/Pulmonary Embolism Present on Admission: No
[2023-05-01] MEDS: ALBUTEROL/IPRATROPIUM 3 ML AMPUL INH (23:17)
[2023-05-02] VITALS (8 sets, daily range): BP systolic 105–151; BP diastolic 61–91; PULSE 66–88; RESP 16–22; TEMP 36.3–37.1; O2SAT 88–96
[2023-05-02] MEDS: ALBUTEROL/IPRATROPIUM 3 ML AMPUL INH ×3 (04:28→20:39)
[2023-05-02 06:45] LABS: Add Manual Diff / Slide Review NO; Basophils Absolute Auto 0 /uL (0-100); Eosinophils Absolute Auto 0 /uL (0-450); Eosinophils Percent Auto 0.2 % (2-4); Hematocrit 36.6 % (36-46); Hemoglobin 12.2 g/dL (12.0-16.0); Lymphocytes Absolute Auto 2400 /uL (1100-4500); Lymphocytes Percent Auto 18.4 % (25-40); Mean Corpuscular HGB Conc 33.2 % (30-36); Mean Corpuscular Hemoglobin 30.2 PG (26-34); Mean Corpuscular Volume 90.9 fL (80-100); Monocytes Absolute Auto 900 /uL (0-900); Neutrophils Absolute Auto 9600 /uL (1500-7000); Neutrophils Percent Auto 74.4 % (50-75); Platelet Count 380 X10^3/uL (150-400); Red Blood Cell Count 4.03 X10^6/uL (4.0-5.2); Red Cell Distribution Width 13.4 % (11.6-14.8); White Blood Cell Count 12.9 X10^3/uL (4.5-11.0)
[2023-05-02 06:52] LABS: BUN Creatinine Ratio 48.6 (6-22); Blood Urea Nitrogen 18 mg/dL (7-17); Calcium 8.7 mg/dL (8.4-10.2); Chloride 89 mmol/L (98-107); Estimated Glomerular Filt Rate > 60 mL/min (>60); Glucose 75 mg/dL (80-110); HEMOLYSIS < 15 (0-50); Potassium 4.5 mmol/L (3.4-5.1); Sodium 130 mmol/L (137-145)
[2023-05-02 06:58] LABS: Carbon Dioxide 37 mmol/L (22-32)
[2023-05-02] MEDS: BUDESONIDE 0.5 MG/2 ML NEB INH (07:30)
[2023-05-02] MEDS: SODIUM CHLORIDE 0.9% FLUSH 10 ML IV ×2 (08:44→21:10)
[2023-05-02] MEDS: cefTRIAXone 2,000 MG in SODIUM CHLORIDE 0.9% 100 ML 200 MG IV (08:44)
--- NOTE | 2023-05-02 10:50 | PM.PN.1 ---
Subjective Subjective Interval history: 67F admitted with hypoxic respiratory failure due to COPD exacerbation and bacterial pneumonia. She feels improved today, with more ability to cough up some secretions. Oxygen improved slightly today. Will continue to try to wean from oxygen today. Exam Vital Signs (past 8 hours): - 05/02/23 04:00 05/02/23 07:23 05/02/23 07:30 Temperature 98.8 F Pulse Rate 66 88 Respiratory Rate 16 18 Blood Pressure 128/66 Pulse Oximetry 96 88 L Oxygen Delivery Method Nasal Cannula Nasal Cannula Oxygen Flow Rate 0 3 Fraction of Inspired Oxygen 32 05/02/23 08:00 Temperature 97.3 F L Pulse Rate 85 Respiratory Rate 16 Blood Pressure 151/80 H Pulse Oximetry 91 Oxygen Delivery Method Oxygen Flow Rate Fraction of Inspired Oxygen Fraction of Inspired Oxygen 32 SaO2/FiO2 Ratio 275 Oxygen Delivery Method Nasal Cannula Oxygen Flow Rate 3 Narrative Exam Narrative: General:? NAD, thin appearing female BMI 17.9 HEENT:? Normocephalic, atraumatic, extraocular muscles intact, oral pharynx is clear and mucous membranes are moist. Neck: supple and symmetric, trachea is midline, no cervical adenopathy. Negative for JVD Lungs:?no tachypnea or respiratory distress Cardio:?RRR. Extremities: No edema Neuro:? Alert and orientated x3,? sensation to touch intact in all extremities, no gross deficits noted of cranial nerves. Psych:? Patient has a well-kept appearance, appropriate affect, mental status attitude thought context and judgment are appropriate for age. Objective Labs 05/02/23 05:06 05/02/23 05:06 Labs: Laboratory Results - last 24 hr 05/02/23 05:06 WBC 12.9 H RBC 4.03 Hgb 12.2 Hct 36.6 MCV 90.9 MCH 30.2 MCHC 33.2 RDW 13.4 Plt Count 380 Neut % (Auto) 74.4 Lymph % (Auto) 18.4 L [place] % (Auto) 7.0 Eos % (Auto) 0.2 L Baso % (Auto) 0.0 Neut # (Auto) 9600 H Lymph # (Auto) 2400 [place] # (Auto) 900 Eos # (Auto) 0 Baso # (Auto) 0 Sodium 130 L Potassium 4.5 Chloride 89 L Carbon Dioxide 37 H BUN 18 H Creatinine 0.37 L Estimated GFR > 60 BUN/Creatinine Ratio 48.6 H Glucose 75 L Calcium 8.7 Magnesium 2.0 PFSH Social History household members: spouse Smoking Status: Current every day smoker alcohol intake: current Assessment & Plan Assessment & Plan narrative: # acute hypoxemic and hypercapnic respiratory failure multifactorial likely due to a combination of undiagnosed COPD with exacerbation/chronic smoking in the setting of multifocal pneumonia -Cultures negative thus far, continue the IV Rocephin/Zithromax with nebulizers and oxygen supplementation. Attempted repeat CXR today but patient refused. -ABG with compensated resp acidosis on admission. -Patient no longer wishes to continue steroids after risks and benefit discussion. She comprehends the risk of stopping these including worsening breathing and prolonged hospitalization. -Maintain continuous pulse ox on telemetry. -Advised patient to quit smoking, she does not wish for nicotine patch at this time, she is motivated to stop smoking. -Echo with grade I diastolic failure, no obvious volume overload. Will hold on furosemide at this time, but if she continues to worsen consider diuresis. # hyponatremia -suspect more likely secondary to the underlying pneumonia possibly SIADH further complicated by smoking. Sodium trending up since admission, from 123 to 130 today, continue to monitor. -urine osm pending # DVT prophylaxis -Lovenox, patient requests SCDs as well # GI prophylaxis -Protonix # Malnutrition. -Nutrition consult for further evaluation -BMI 17 # social issues/discharge barriers. -Has not seen a physician in the past 2 years and may need case management/social service coordinator input to set up primary physician Goals of care has been reviewed and patient has requested a DNR status at this time. Discussion was witnessed by MD emergency room Dispo: 2-3 days pending improvement in PNA and COPD exacerbation. Quality VTE Deep Vein Thrombosis/Pulmonary Embolism Present on Admission: No
--- NOTE | 2023-05-02 12:17 | CM.DPNOTE ---
DCP Note VETERINARIAN ASSISTANT reviewed EMR. Per provider in morning rounds, pt better today. Remains on 2ltrs O2, hoping to wean off more today. Per RN, anticipate dc home tomorrow. VETERINARIAN ASSISTANT entered room. Pt sitting up in bed. Pt reports feeling better today. Reports no CM needs. Reports no questions about PCPs and is still mulling it over if she wants to establish care with one. Plan: home when no longer on O2/medically stable with son/DIL to support at home. DIL to transport. No CM needs identified at this time. CM team will continue to follow as needed. BARAK Andersen
[2023-05-02 13:25] LABS: Legionella pneumo Antigen Negative (Negative)
[2023-05-02 19:53] LABS: Osmolality Urine 168 mOsmol/kg (.)
[2023-05-02 19:53] LABS: Osmolality, Serum 263 mOsmol/kg (280-301)
[2023-05-03 00:08] VITALS: BP 141/83; PULSE 85; RESP 22; TEMP 36.9; O2SAT 93
[2023-05-03 04:11] VITALS: BP 130/72; PULSE 80; RESP 22; TEMP 36.3; O2SAT 94
[2023-05-03 06:18] LABS: Add Manual Diff / Slide Review NO; Basophils Absolute Auto 0 /uL (0-100); Basophils Percent Auto 0.1 % (0-2); Eosinophils Absolute Auto 100 /uL (0-450); Hematocrit 36.5 % (36-46); Hemoglobin 12.2 g/dL (12.0-16.0); Lymphocytes Absolute Auto 2000 /uL (1100-4500); Lymphocytes Percent Auto 22.9 % (25-40); Mean Corpuscular HGB Conc 33.3 % (30-36); Mean Corpuscular Hemoglobin 30.3 PG (26-34); Mean Corpuscular Volume 90.8 fL (80-100); Monocytes Absolute Auto 800 /uL (0-900); Monocytes Percent Auto 8.9 % (3-14); Neutrophils Absolute Auto 5900 /uL (1500-7000); Neutrophils Percent Auto 67.1 % (50-75); Platelet Count 342 X10^3/uL (150-400); Red Blood Cell Count 4.02 X10^6/uL (4.0-5.2); Red Cell Distribution Width 13.6 % (11.6-14.8); White Blood Cell Count 8.8 X10^3/uL (4.5-11.0)
[2023-05-03 06:26] LABS: BUN Creatinine Ratio 43.8 (6-22); Blood Urea Nitrogen 14 mg/dL (7-17); Calcium 8.8 mg/dL (8.4-10.2); Carbon Dioxide 37 mmol/L (22-32); Chloride 93 mmol/L (98-107); Estimated Glomerular Filt Rate > 60 mL/min (>60); Glucose 85 mg/dL (80-110); HEMOLYSIS < 15 (0-50); Magnesium 2.2 mg/dL (1.6-2.3); Potassium 4.6 mmol/L (3.4-5.1); Sodium 131 mmol/L (137-145)
[2023-05-03 08:00] VITALS: BP 129/87; PULSE 77; RESP 18; TEMP 36.4; O2SAT 92
[2023-05-03] MEDS: cefTRIAXone 2,000 MG in SODIUM CHLORIDE 0.9% 100 ML 200 MG IV (08:39)
[2023-05-03] MEDS: SODIUM CHLORIDE 0.9% FLUSH 10 ML IV (08:40)
[2023-05-03 09:22] VITALS: O2SAT 92
--- NOTE | 2023-05-03 09:23 | P.DS_ITS ---
History of Present Illness History of Present Illness Date Patient Seen: 05/03/23 Time Patient Seen: 09:23 Chief complaint: possible flu Narrative: From overnight provider: 67 years old female chronic smoker with likely COPD presented to the emergency room for worsening shortness of breath with generalized weakness and cough that is productive with greenish-yellow sputum. Symptoms have been ongoing for the past week?10 days. She lives with her son/family and apparently some members tested positive for influenza and patient was trying conservative management but symptoms worsened to the point where she presents to the emergency room. Did have chills but did not check temperature. More of a chest tightness with exertion. Denies any nausea or vomiting. Did have a headache that is intermittent but no focal neurological deficits. In the ED was noted to be tachypneic with respiration in the mid 20s and hypoxic with an O2 saturation in the high 70s on room air on arrival that has since improved to 92% on 3 L. Subsequent workup revealed a white count of 22,400 and an ABG showed a pH of 7.37 with a pCO2 of 65 at FiO2 of 2 L. BMP showed a sodium of 123. Lactic acid was 1.0. The virus panel is negative for COVID influenza/RSV and other agents being checked. Chest x-ray and a follow-up CT chest is consistent with multifocal pneumonia. Patient received IV Rocephin/Zithromax/Solu-Medrol with nebulizers/oxygen supplementation. Patient has been admitted for further evaluation Discharge Providers Provider Date of admission: 04/29/23 05:18 Discharge Date: 05/03/23 Consults: 04/29/23 10:06 Consult to Dietitian, Adult Routine Comment: Reason For Exam: BMI 17 Discharge provider: Francisco Reagan DO Summary Hospital Course Discharge Diagnosis: # acute hypoxemic and hypercapnic respiratory failure multifactorial likely due to a combination of undiagnosed COPD with exacerbation/chronic smoking in the setting of multifocal pneumonia # hyponatremia # Malnutrition. Hospital Course: This is a 67 year old female smoker with likely COPD who was admitted for acute respiratory failure with hypoxia. This is presumed secondary to COPD exacerbation and pneumonia based on presentation. Sodium was also low, with a urine osm of 168. It improved without additional treatments and no further evaluation was necessary. She refused additional steroids after HD#2 but had begun to improve at that time. She was continued on ceftriaxone and azithromycin, and ultimately able to be weaned from supplemental oxygen at the time of discharge. She felt much improved. She was counseled on smoking cessation throughout her stay. Discussed with the patient starting advair twice a day and sent a rescue inhaler as well, which she was interested in. She was encouraged to look for a PCP in the area and was provided a list by case management. She will complete antibiotic therapy at home with another 3 days of augmentin at discharge. No additional steroids were prescribed after risk benefit discussion and improvement in the hospital without them. Time Spent with Patient Time spent: Greater than 30 minutes Exam Vital Signs (past 8 hours): - 05/03/23 04:11 05/03/23 08:00 Temperature 97.4 F L 97.5 F L Pulse Rate 80 77 Respiratory Rate 22 18 Blood Pressure 130/72 129/87 Pulse Oximetry 94 92 Oxygen Flow Rate 2 2 Fraction of Inspired Oxygen 32 SaO2/FiO2 Ratio 275 Oxygen Delivery Method Nasal Cannula Oxygen Flow Rate 2 Narrative Exam Narrative: General:? NAD, thin appearing female BMI 17.9 HEENT:? Normocephalic, atraumatic, extraocular muscles intact, oral pharynx is clear and mucous membranes are moist. Neck: supple and symmetric, trachea is midline, no cervical adenopathy. Negative for JVD Lungs:?no tachypnea or respiratory distress Cardio:?RRR. Extremities: No edema Neuro:? Alert and orientated x3,? sensation to touch intact in all extremities, no gross deficits noted of cranial nerves. Psych:? Patient has a well-kept appearance, appropriate affect, mental status attitude thought context and judgment are appropriate for age. Objective Labs 05/03/23 05:30 05/03/23 05:30 Labs: Laboratory Results - last 24 hr 04/29/23 04/29/23 05/03/23 03:10 08:45 05:30 WBC 8.8 RBC 4.02 Hgb 12.2 Hct 36.5 MCV 90.8 MCH 30.3 MCHC 33.3 RDW 13.6 Plt Count 342 Neut % (Auto) 67.1 Lymph % (Auto) 22.9 L [place] % (Auto) 8.9 Eos % (Auto) 1.0 L Baso % (Auto) 0.1 Neut # (Auto) 5900 Lymph # (Auto) 2000 [place] # (Auto) 800 Eos # (Auto) 100 Baso # (Auto) 0 Sodium 131 L Potassium 4.6 Chloride 93 L Carbon Dioxide 37 H BUN 14 Creatinine 0.32 L Estimated GFR > 60 BUN/Creatinine Ratio 43.8 H Glucose 85 Serum Osmolality 263 L Calcium 8.8 Magnesium 2.2 Urine Osmolality 168 L.pneumophila Antigen Negative [facility] Social History household members: spouse Smoking Status: Current every day smoker alcohol intake: current Discharge Plan Discharge Plan Patient Disposition: Home Provider Discharge Comment: You were admitted to the hospital with COPD exacerbation and pneumonia. Recommend advair for daily controller medication for COPD, take albuterol as needed for shortness of breath. Complete treatment for pneumonia with 3 more days of antibiotics to start tomorrow morning. Discharge orders & Medications Prescriptions: New amoxicillin-pot clavulanate 875-125 mg tablet 1 tab PO BID 3 Days Qty: 6 0RF fluticasone propion-salmeterol [Advair Diskus] 100-50 mcg/dose blister with device 1 inh inhalation BID 30 Days Qty: 60 0RF albuterol sulfate 90 mcg/actuation HFA aerosol inhaler 1 inh inhalation QID PRN (Reason: shortness of breath or wheezing) 30 Days Qty: 8.5 0RF Diet/Activity/Treatments Diet: Diet as Tolerated and Regular Activity: As tolerated, no restriction Visit Report/Discharge Packet Instructions: Pneumonia-Adult, DI for Hyponatremia, DI for Respiratory Failure, Amoxicillin and Clavulanic Acid Stand Alone Forms: Patient Portal/API, Stroke Signs & Symptoms Quality VTE Deep Vein Thrombosis/Pulmonary Embolism Present on Admission: No
--- NOTE | 2023-05-03 09:53 | PC.NURSE ---
Pt is dressed and ready for discharge home with Daughter. IV has been removed. Went over d/c instructions with Pt-discussed d/c meds, time of last dose, reminded Pt to take abx completely and as prescribed, encouraged fluid intake to prevent constipation or dehydration, reminded Pt to take it easy and not overdo it-pneumonia isn't cured in a day, reviewed stroke education, and encouraged Pt to find a PCP for continued care. Pt denied further questions and will be taken out to pov with all belongings via w/c when daughter arrives.
--- NOTE | 2023-05-03 10:37 | CM.DPNOTE ---
DCP Note DATA MANAGEMENT reviewed EMR. Per provider in morning rounds, cleared to dc. Per RN, off O2 and pt is eager to leave. No additional CM needs identified. Plan; home with family today. CM team will continue to follow as needed. BARAK Andersen
== END 2023-05-03 11:00 | disposition home or self-care (01) | DRG 193 ==
LOC: ED 04:46 → AC 05:19
PROVIDERS: Internal Medicine; Student in an Organized Health Care Education/Training Program; Admitting Provider Internal Medicine; Emergency Provider Emergency Medicine; Referring Provider Emergency Medicine; Visit Provider Internal Medicine
DX: J18.9 Pneumonia, unspecified organism (principal); J96.01 Acute respiratory failure with hypoxia; J96.02 Acute respiratory failure with hypercapnia; E87.1 Hypo-osmolality and hyponatremia; J44.1 Chronic obstructive pulmonary disease with (acute) exacerbation; E46 Unspecified protein-calorie malnutrition; Z68.1 Body mass index [BMI] 19.9 or less, adult; J44.0 Chronic obstructive pulmonary disease with (acute) lower respiratory infection; J44.9 Chronic obstructive pulmonary disease, unspecified; F17.200 Nicotine dependence, unspecified, uncomplicated
CPT/HCPCS: 36415; 36600; 70450; 71045; 71260; 80048; 80053; 81001; 82550; 82805; 83605; 83735; 83930; 83935; 84484; 85025; 85610; 87040; 87086; 87449; 87633; 93005; 93306; 94640; 94760; 94762; 96365; 96375; 99285; 99291; J0696; J1200; J2765; J2930; Q9967